=== PATIENT | female | born 1980 | race Caucasian/White ===

== ENCOUNTER → 2020-06-04 09:21 | Outpatient (CLI) | payer OTHER, SELFPAY ==
--- NOTE | 2020-06-04 | DI.MG.S_ITS ---
BILATERAL DIGITAL DIAGNOSTIC MAMMOGRAM 3D/2D WITH AUGMENTATION: 06/04/2020 CLINICAL: Baseline exam. Right breast lump. No prior exams were available for comparison. The tissue of both breasts is extremely dense, which lowers the sensitivity of mammography. Bilateral subpectoral silicone implants are present. There are multiple various size oval probable cysts in the right breast inferior lateral quadrant anterior depth. There also is an irregular asymmetry with a circumscribed margin in the right breast at 1 o'clock anterior depth. There are multiple various size oval asymmetries with a circumscribed margin in the left breast superior lateral quadrant middle depth. No other significant masses or calcifications are seen in either breast. IMPRESSION: INCOMPLETE: NEEDS ADDITIONAL IMAGING EVALUATION The multiple various size oval cysts in the right breast inferior lateral quadrant anterior depth are indeterminate. An ultrasound is recommended. The irregular asymmetry in the right breast at 1 o'clock anterior depth most likely is clustered cysts and is indeterminate. An ultrasound is recommended. There is no abnormality seen in the right breast to correspond with the palpable abnormality along the inferior aspect, however, ultrasound is recommended. Right breast ultrasound was performed immediately following this exam. The multiple various size oval asymmetries in the left breast superior lateral quadrant middle depth most likely are cysts or a cluster of cysts and are indeterminate. A left breast ultrasound is recommended. An order for this exam is required. This exam was interpreted at Station ID: [id number]. NOTE: For mammograms, a report in lay terms will be sent to the patient. Approximately 15% of breast malignancies will not be visualized mammographically. In the management of a palpable breast mass, a negative mammogram must not discourage biopsy of a clinically suspicious lesion. Electronically Signed By: Marianela sevilla/:06/04/2020 11:36:48 letter sent: Need Ultrasound ACR BI-RADS Category 0: Incomplete [id number]
--- NOTE | 2020-06-04 10:50 | DI.US.S_ITS ---
At the request of: J LUIS BROWN Procedure: US breast RT limited LIMITED ULTRASOUND OF RIGHT BREAST: 06/04/2020 CLINICAL: Patient returns today to evaluate focal asymmetries in the right breast. Comparison is made to exam dated: 06/04/2020 [facility]. Color flow and real-time ultrasound of the right breast upper inner and lower outer quadrants were performed. Rae scale images of the real-time examination were reviewed. There is a 1.1 cm x 1.2 cm x 0.9 cm cyst with a thickened wall in the right breast at 9 o'clock posterior depth 7 cm from the nipple. This cyst is hypoechoic. This correlates as palpated and with mammography findings. Color flow imaging demonstrates that there is no vascularity present. There also is a 0.8 cm x 0.9 cm x 0.4 cm oval mass with a circumscribed margin in the right breast at 7 o'clock middle depth 4 cm from the nipple. This correlates with mammography findings. Color flow imaging demonstrates that there is an adjacent vascularity. Additionally, there is a 1.5 cm x 0.7 cm x 0.6 cm cluster of irregular cysts with a septated internal wall in the right breast at 9 o'clock posterior depth 9 cm from the nipple. This cluster of irregular cysts is anechoic. This correlates with mammography findings. Color flow imaging demonstrates that there is no vascularity present. In addition, there is a benign 0.9 cm oval cyst in the right breast at 9 o'clock posterior depth. There are several other simple oval cysts scattered throughout tissue in the right breast. IMPRESSION: PROBABLY BENIGN The 1.2 cm cyst in the right breast at 9 o'clock posterior depth is consistent with a complicated cyst and is probably benign. The 0.9 cm oval mass in the right breast at 7 o'clock middle depth most likely is a complicated cyst or a fibroadenoma and is probably benign. The 1.5 cm cluster of irregular cysts in the right breast at 9 o'clock posterior depth is consistent with a complicated cyst and is probably benign. There are several other simple cysts in the right breast which are benign. A follow-up right ultrasound in 6 months is recommended to demonstrate stability. Findings and recommendations were conveyed to the patient at time of exam. This exam was interpreted at Station ID: [id number]. Electronically Signed By: Marianela sevilla/:06/04/2020 11:48:25 letter sent: Followup Recommended Ultrasound BI-RADS: 3 Probably benign
== END ==
PROVIDERS: PCP Family Medicine; Referring Provider Family Medicine; Visit Provider Family Medicine
DX: N63.12 Unspecified lump in the right breast, upper inner quadrant (principal); N63.14 Unspecified lump in the right breast, lower inner quadrant; N63.15 Unspecified lump in the right breast, overlapping quadrants
CPT/HCPCS: 76642; 77066; G0279

== ENCOUNTER → 2020-07-22 10:46 | Outpatient (CLI) | payer OTHER, SELFPAY ==
--- NOTE | 2020-07-22 | DI.US.S_ITS ---
COMPLETE ULTRASOUND OF LEFT BREAST: 07/22/2020 CLINICAL: Patient returns today to evaluate focal asymmetries in the left breast. [facility] is [facility] Color flow and real-time ultrasound of the left breast four quadrants and retroareolar regions were performed. There is a benign 2.4 cm x 2.8 cm x 1 cm cyst in the left breast at 1 o'clock posterior depth 8 cm from the nipple. There also is a benign 0.8 cm x 1.2 cm x 0.7 cm cluster of cysts in the left breast at 2 o'clock posterior depth 1 cm from the nipple. Additionally, there is a benign 2 cm x 1.7 cm x 0.9 cm cluster of cysts in the left breast at 9 o'clock posterior depth 2 cm from the nipple. In addition, there is a benign 0.8 cm x 0.7 cm x 0.5 cm cyst in the left breast at 4 o'clock posterior depth 2 cm from the nipple. IMPRESSION: BENIGN There is no sonographic evidence of malignancy. The 2.4 cm x 2.8 cm x 1 cm cyst in the left breast at 1 o'clock posterior depth is benign. The 0.8 cm x 1.2 cm x 0.7 cm cluster of cysts in the left breast at 2 o'clock posterior depth is benign. The 2 cm x 1.7 cm x 0.9 cm cluster of cysts in the left breast at 9 o'clock posterior depth is benign. The 0.8 cm x 0.7 cm x 0.5 cm cyst in the left breast at 4 o'clock posterior depth is benign. Return to annual mammogram screening schedule is recommended. Future imaging is recommended as follows: 12/02/2020 follow-up right ultrasound. This exam was interpreted at Station ID: [id number]. Electronically Signed By: Moreno Gordon acr/:07/22/2020 11:39:06 letter sent: Normal Exam Ultrasound BI-RADS: 2 Benign
== END ==
PROVIDERS: PCP Family Medicine; Referring Provider Family Medicine; Visit Provider Family Medicine
DX: R92.8 Other abnormal and inconclusive findings on diagnostic imaging of breast (principal); N60.02 Solitary cyst of left breast
CPT/HCPCS: 76642

== ENCOUNTER → 2020-11-09 14:23 | Outpatient (CLI) | payer OTHER, SELFPAY ==
[2020-11-09 15:06] LABS: COVID19 -Nasal RAPID Negative (Negative)
== END ==
PROVIDERS: PCP Family Medicine; Visit Provider Physician Assistant
DX: R09.81 Nasal congestion (principal); Z20.822 Contact with and (suspected) exposure to COVID-19
CPT/HCPCS: 87635

== ENCOUNTER → 2021-05-14 18:31 | Outpatient (CLI) | payer OTHER, SELFPAY | PROVIDERS: PCP Family Medicine; Referring Provider Internal Medicine; Visit Provider Internal Medicine | DX: Z23 Encounter for immunization (principal) | CPT/HCPCS: 90471; 90686 ==

== ENCOUNTER → 2022-03-16 08:44 | Outpatient (CLI) | payer OTHER, SELFPAY ==
--- NOTE | 2022-03-16 | DI.MRI.S_ITS ---
PROCEDURE: MR KNEE LT WO CON INDICATIONS: Pain in left knee TECHNIQUE: Noncontrast sagittal PD fast spin echo and T2 fast spin echo with fat saturation, sagittal 3-D FLASH with fat saturation; coronal T1 spin echo and PD fast spin echo with fat saturation, and axial PD fast spin echo with fat saturation through the knee. COMPARISON: None. FINDINGS: Image quality: Excellent. Menisci: The medial and lateral menisci demonstrate normal morphology and internal signal. The meniscal root ligaments appear intact. Cruciate ligaments: There is suggestion of low to moderate grade partial-thickness tear involving proximal ACL near its femoral insertion. No full-thickness ACL rupture. PCL is intact. Medial structures: The medial collateral ligament appears intact. The posterior oblique ligament, semimembranosus tendon insertions, oblique popliteal ligament, and meniscocapsular junction appear intact. Visualized portions of the pes anserinus tendons appear normal. No abnormal bursal fluid. Lateral structures: The lateral collateral ligament, long and short heads of the biceps femoris tendon appear intact. The popliteus tendon appears normal; the popliteofibular ligament appears intact. Iliotibial band appears normal. Anterior structures: The quadriceps and patellar tendons appear intact. Patellar alignment is normal. No femoral trochlear dysplasia or ventral trochlear prominence. No edema in the infrapatellar fat pad. Bones and cartilage: There is marrow edema involving posterior aspect of proximal tibia more prominent in lateral portion of posterior tibia extending to lateral tibial plateau. No discrete fracture line is seen. No other area of abnormal marrow signal. The cartilage of the medial and lateral femorotibial compartments, as well as the patellofemoral compartment, appears normal in thickness. Joint space: There is moderate joint effusion. No Martinez's cyst. Normal appearing synovial plicae are incidentally noted. IMPRESSION: 1. Moderate to high-grade partial-thickness tear involving proximal ACL near its femoral insertion. No definite full-thickness ACL rupture. PCL is intact. 2. Bony contusion involving posterior aspect of proximal tibia extending to lateral tibial plateau. No definite fracture line. Articulating cartilages are intact. Moderate joint effusion, no loose bodies. 3. No evidence of focal meniscal tear. Dictated by: Jacob Ozuna M.D. on 03/16/2022 at 11:28 Approved by: Jacob Ozuna M.D. on 03/16/2022 at 11:33
== END ==
PROVIDERS: PCP Student in an Organized Health Care Education/Training Program; Referring Provider Student in an Organized Health Care Education/Training Program; Visit Provider Student in an Organized Health Care Education/Training Program
DX: M25.562 Pain in left knee (principal); S83.512A Sprain of anterior cruciate ligament of left knee, initial encounter; M25.462 Effusion, left knee
CPT/HCPCS: 73721

== ENCOUNTER → 2022-06-01 12:27 | Outpatient (CLI) | payer OTHER, SELFPAY | PROVIDERS: PCP Student in an Organized Health Care Education/Training Program; Referring Provider Internal Medicine; Visit Provider Internal Medicine | DX: Z23 Encounter for immunization (principal) | CPT/HCPCS: 90471; 90686 ==

== ENCOUNTER → 2024-07-05 11:42 | Outpatient (CLI) | payer OTHER, SELFPAY | PROVIDERS: PCP Student in an Organized Health Care Education/Training Program; Referring Provider Internal Medicine; Visit Provider Internal Medicine | DX: Z23 Encounter for immunization (principal) | CPT/HCPCS: 90471; 90656 ==